=== PATIENT | female | born 1960 ===

== ENCOUNTER 2019-01-28 14:39 | Inpatient (IN) | payer SELFPAY ==
--- NOTE | 2019-01-28 16:06 | ADMNOTE ---
Subjective Date of Service: 01/28/19 Interval History: ADMISSION HISTORY AND PHYSICAL EXAM: ALLERGIES: NONE HOME MEDS: Metoprolol 25 mg bid Lisinopril 20 mg daily Ondansetron 4 mg QID PRN nausea HPI: The patient was hospitalized for 2 days about a week ago at [facility] for possible pneumonia. She was found to have possible metastatic lesions in her spleen, liver, kidneys, adrenal glands, and lungs. She has had anorexia for a few weeks and lost about 5 pounds. She quit smoking 6 weeks ago. She has a non-productive cough and BARBOSA. Family History: Findings - F of alcoholic cirrhosis. M A&W. 1 sister A&W. Social History: Findings - Lives with her who is her SDM. Quit smoking 11/2018. No alcohol abuse. 3 children Past Medical History: Findings - JENNIFER 2004. HTN Review of Systems - Measurements Intake and Output: Intake and Output Last 24 Hours 01/26/19 01/27/19 01/28/19 01/29/19 06:59 06:59 06:59 06:59 Weight 144 lb - Review of Systems Constitutional Symptoms: Positive: Weight Loss - 5 pounds Dermatology: Positive: Normal HEENT: Positive: Normal Eyes: Positive: Normal Thyroid: Positive: Normal Pulmonary: Positive: Cough, Exercise Intolerance Cardiology: Positive: Normal Gastroenterology: Positive: Nausea, Anorexia Genital - Urinary: Positive: Normal Genitourinay - Female: Positive: Menopause Musculoskeletal: Positive: Joint Pain - "I hurt all over" Endocrinology: Positive: Normal Hematologic/Lymphatic: Negative: Anemia, Easy Bruising, Hx Leukemia, Hx Lymphoma, Use of Anticoagulant, Use of Antiplatelet Drugs, Other Neurology: Positive: Normal Psychiatry: Positive: Normal Allergic/Immunologic: Negative: Hx Anaphylaxis, Hx Angioedema, Hx Environmental, Hx Seasonal, Asthma, Hx HIV, Immunocompromise, Swollen Glands LymphNodes, Other Objective Active Medications: Acetaminophen (Tylenol Tab*) 650 mg PO Q4H PRN PRN Reason: PAIN Azithromycin (Zithromax Tab*) 250 mg PO DAILY TRACEY Lisinopril (Prinivil Tab*) 2.5 mg PO DAILY TRACEY Vital Signs - 8 hr 01/28/19 14:41 Temperature 96.7 F Pulse Rate 98 Respiratory 28 Rate Blood Pressure 113/63 (mmHg) O2 Sat by Pulse 97 Oximetry Oxygen Devices in Use Now: Nasal Cannula Appearance: Alert, sitting up in bed. In fair spirits. Looks comfortable, occ dry cough during my visit. Eyes: No Scleral Icterus Ears/Nose/Mouth/Throat: Clear Oropharnyx, Mucous Membranes Moist Neck: NL Appearance and Movements; NL JVP, No Thyroid Enlargement, Masses Respiratory: Symmetrical Chest Expansion and Respiratory Effort, Clear to Percussion, - - mild rhonchi BL Cardiovascular: NL Sounds; No Murmurs; No JVD, RRR, No Edema, - Abdominal: NL Sounds; No Tenderness; No Distention, No Hepatosplenomegaly Lymphatic: - - L submandibular area 5 x 4 cm firms mass, tender. R lower neck 6 x 5 cm firm mass Extremities: No Edema, No Clubbing, Cyanosis, - Skin: No Rash or Ulcers, No Nodules or Sclerosis, - Neurological: Alert and Oriented x 3, NL Sensation Assess/Plan/Problems-Billing Assessment: - Patient Problems (1) Metastatic cancer Current Visit: Yes Status: Acute Code(s): C79.9 - SECONDARY MALIGNANT NEOPLASM OF UNSPECIFIED SITE SNOMED Code(s): 636689068 Comment: No tissue dx as yet. S/p neck mass bx 01/29/19. Dr. Lara consulted. CT neck/chest /abd /pelvis ordered. (2) SOB (shortness of breath) Current Visit: Yes Status: Acute Code(s): R06.02 - SHORTNESS OF BREATH SNOMED Code(s): 472585970 Comment: Azithromycin ordered. Possible superimposed respiratory infection. Scheduled benzonatate and guaifenesin with dextromethorphan for cough. Hypoxemia is likely related to metastatic disease and undiagnosed COPD exacerbation. will tx with Tova Medrol
[2019-01-28] MEDS ORDERED: GuaiFENesin DM* 5 ML UDC PO PRN (16:15)
[2019-01-28] MEDS: Azithromycin TAB* 250 MG PO SCH (16:57)
[2019-01-28] MEDS ORDERED: GuaiFENesin DM* 5 ML UDC PO SCH (17:00)
[2019-01-28] MEDS: Benzonatate CAP* 100 MG PO SCH (21:37)
[2019-01-28] MEDS: Acetaminophen TAB* 325 MG PO PRN (21:43)
[2019-01-29] MEDS: Azithromycin TAB* 250 MG PO SCH (08:16)
[2019-01-29] MEDS: Benzonatate CAP* 100 MG PO SCH ×3 (08:16→20:19)
[2019-01-29] MEDS ORDERED: Lisinopril TAB* 5 MG PO SCH (09:00)
[2019-01-29] MEDS: ALPRAZolam TAB* 0.5 MG PO PRN (12:01)
[2019-01-29] MEDS ORDERED: NS 0.9% 1000 ML** 1,000 ML IV SCH (12:45)
[2019-01-29] MEDS ORDERED: Iohexol 300* (CONTRAST) 10 ML SDV IV ONE (13:06)
--- NOTE | 2019-01-29 13:50 | PN ---
Subjective Date of Service: 01/29/19 Interval History: Pt c/o SOB x 3 days. She appears not to be willing to give too much information , very nonspecific historian. She stopped smoking 6 weeks ago (h/o 40 pack yr smoking), noted a mass at the base of R neck 2 weeks ago ,together with cough and SOB. Went to a doctor who placed her on Z- Pack. When she did not improve she went to [place] and was admitted on 01/21/19. [address] CT showed: lungs with reticonodular pattern and dense consolidation LLL. Masses of liver and spleen. B/l adrenal masses: L 7 cm, R-5.6 cm. Duodenal diverticula, abdominal aorta plaque at 1.4 cm in thickeness. Retroperitoneal adenopathy. She was discharged on 01/23/19 on Keflex and lisinopril without established f/u with oncology and no insurance coverage. Went to see Dr. Orellana on 01/28/19 who sent her back to ED in [place] from where she was transferred to [facility] for oncology consult. Has sergio on 02 x 2 days, c/o SOB. occasional nonproductive cough. Denies fever, denies wt loss. Family History: Findings - F of alcoholic cirrhosis. M A&W. 1 sister A&W. Social History: Findings - Lives with her who is her SDM. Quit smoking 11/2018. No alcohol abuse. 3 children Past Medical History: Findings - JENNIFER 2004. HTN Objective Active Medications: Acetaminophen (Tylenol Tab*) 650 mg PO Q4H PRN PRN Reason: PAIN Last Admin: 01/28/19 21:43 Dose: 650 mg Alprazolam (Xanax Tab*) 0.5 mg PO BID PRN PRN Reason: ANXIETY Last Admin: 01/29/19 12:01 Dose: 0.5 mg Azithromycin (Zithromax Tab*) 250 mg PO DAILY TRACEY Last Admin: 01/29/19 08:16 Dose: 250 mg Benzonatate (Tessalon Cap*) 200 mg PO TID TRACEY Last Admin: 01/29/19 08:16 Dose: 200 mg Guaifenesin/Dextromethorphan (Robitussin Dm*) 5 ml PO Q4H PRN PRN Reason: COUGH Sodium Chloride (Ns 0.9% 1000 Ml) 1,000 mls @ 75 mls/hr IV PER RATE TRACEY Stop: 01/30/19 02:04 Vital Signs - 8 hr 01/29/19 01/29/19 01/29/19 07:15 07:34 10:51 Temperature 97.4 F Pulse Rate 90 94 Respiratory 18 20 26 Rate Blood Pressure 103/59 95/61 (mmHg) O2 Sat by Pulse 92 94 Oximetry 01/29/19 01/29/19 12:01 12:23 Temperature Pulse Rate 94 Respiratory 22 28 Rate Blood Pressure 94/62 (mmHg) O2 Sat by Pulse 94 Oximetry Oxygen Devices in Use Now: Nasal Cannula Appearance: 58 yo f in nAD, AAOx3 Eyes: No Scleral Icterus, PERRLA Ears/Nose/Mouth/Throat: NL Teeth, Lips, Gums, Mucous Membranes Moist Neck: NL Appearance and Movements; NL JVP, Trachea Midline, - - R base of the neck/supraclavicular mass at 4-5 cm in diam Respiratory: Symmetrical Chest Expansion and Respiratory Effort, - - distant breath sounds b/l Cardiovascular: NL Sounds; No Murmurs; No JVD, RRR Abdominal: NL Sounds; No Tenderness; No Distention, No Hepatosplenomegaly Lymphatic: No Cervical Adenopathy Extremities: No Edema Skin: No Rash or Ulcers, No Nodules or Sclerosis Neurological: Alert and Oriented x 3, NL Muscle Strength and Tone Assess/Plan/Problems-Billing Assessment: 58 yo F with h/o smoking and HTN who routinely does not f/u with a PCP. She stopped smoking 6 weeks ago (h/o 40 pack yr smoking), noted a mass at the base of R neck 2 weeks ago ,together with cough and SOB. Went to a doctor who placed her on Z- Pack. When she did not improve she went to [place] and was admitted on 01/21/19. There CT showed: lungs with reticonodular pattern and dense consolidation LLL. Masses of liver and spleen. B/l adrenal masses: L 7 cm, R-5.6 cm. Duodenal diverticula, abdominal aorta plaque at 1.4 cm in thickeness. Retroperitoneal adenopathy. She was discharged on 01/23/19 on Keflex and lisinopril without established f/u with oncology and no insurance coverage. Went to see Dr. Orellana on 01/28/19 who sent her back to ED in [place] from where she was transferred to [facility] for oncology consult. - Patient Problems (1) Metastatic cancer Comment: No tissue dx as yet. S/p neck mass bx 01/29/19. Dr. Lara consulted. CT neck/chest /abd /pelvis ordered. (2) SOB (shortness of breath) Comment: Scheduled benzonatate and guaifenesin with dextromethorphan for cough. Hypoxemia is likely related to metastatic disease and undiagnosed COPD exacerbation. will tx with Tova Medrol (3) HTN (hypertension) Comment: today with mild hypotension, given NPO status for CT and precedures. will cont gentle IVF, stop lisinopril (4) DVT prophylaxis Comment: HSQ Status and Disposition: Inpatient
[2019-01-29] MEDS ORDERED: Heparin VIAL(*) 5000 UNITS/ML VIAL (FIVE THOUSAND) SUBCUT SCH (14:00)
[2019-01-29] MEDS: Albuterol/Ipratropium NEB.SOL* Albuterol 2.5 MG/Ipratropium 0.5 MG 3 ML INH PRN ×2 (14:23→20:28)
[2019-01-29] MEDS: methylPREDNISolone SOD 40 MG* 1 ML VIAL IV SCH (14:35)
[2019-01-29] MEDS: Acetaminophen TAB* 325 MG PO PRN (14:35)
[2019-01-29 15:41] LABS: Hematocrit 38 % (35-47); Mean Corpuscular HGB Conc 34 g/dL (31-36); Mean Corpuscular Hemoglobin 29 pg (27-31); Mean Corpuscular Volume 87 fL (80-97); Red Blood Count 4.41 10^6 /uL (3.70-4.87); Red Cell Distribution Width 14 % (10-15)
[2019-01-29] MEDS: Enoxaparin(*) 60 MG/0.6 ML SYR SUBCUT SCH (15:47)
[2019-01-29 15:57] LABS: Albumin 2.9 g/dL (3.2-5.2); Albumin/Globulin Ratio 1.2 (1-3); BUN/Creatinine Ratio 28.4 (8-20); C Reactive Protein 284.28 mg/L (<8.01); Calcium 8.2 mg/dL (8.6-10.3); EGFR African American 97.2 (>60); EGFR Non-African American 80.3 (>60); Globulin 2.4 g/dL (2-4); Potassium 4.1 mmol/L (3.5-5.0); Total Bilirubin 0.8 mg/dL (0.2-1.0); Total Protein 5.3 g/dL (6.4-8.9)
--- NOTE | 2019-01-29 16:11 | ECHO ---
*[facility]* [place] [address] Fax #: [phone] Transthoracic Echocardiogram Patient: Dilma Tejada : 1960 Study Date: 01/29/2019 Age: 58 Gender: F HR: 95 bpm Height: 66 in /167.6 cm BSA: 1.73 m^2 Weight: 142.7 lb /64.9 kg BMI: 23.1 kg/m^2 *Biomedical Engineering Aide: * Carmen Gutierrez [facility] *Referring Physician: * Florida Dykes *Reading Physician: * Jono Cm MD Indications: Pericardial Effusion. Pulmonary embolism. History: Metastatic disease to liver, spleen, kidneys, adrenal glands, lungs. Risk factors: Current tobacco use. Conclusions Summary: - Left ventricle: Systolic function is hyperdynamic. The estimated ejection fraction is 65-70%. Although no diagnostic regional wall motion abnormality is identified, this possibility cannot be completely excluded on the basis of this study. - Mitral valve: There is trace regurgitation. - Aortic valve: There is no evidence of stenosis. There is no significant regurgitation. - Pericardium, extracardiac: A small pericardial effusion is identified circumferential to the heart. There is no evidence of hemodynamic compromise. - Study data: No prior study is available for comparison. Study data: Transthoracic echocardiogram. Procedure: Transthoracic echocardiography was performed. Image quality was adequate. The study was technically limited due to Smoking history. Complete 2D, spectral Doppler, and color flow Doppler. Location: Bedside. Patient status: Inpatient. Patient room number: 445. No prior study is available for comparison. Rhythm: Normal sinus rhythm. Findings Left ventricle: The cavity size is normal. Wall thickness is mildly increased. Systolic function is hyperdynamic. The estimated ejection fraction is 65-70%. Although no diagnostic regional wall motion abnormality is identified, this possibility cannot be completely excluded on the basis of this study. There is no consistent Doppler evidence of clinically significant diastolic dysfunction. Right ventricle: The cavity size is normal. Wall thickness is mildly increased. Systolic function is normal. Left atrium: The atrium is normal in size. Right atrium: The atrium is normal in size. Mitral valve: The Mitral valve annulus appears calcified. The leaflets are mildly thickened. There is no evidence of stenosis. There is trace regurgitation. Aortic valve: The leaflets are normal thickness. There is no evidence of stenosis. There is no significant regurgitation. Tricuspid valve: The leaflets are normal thickness. There is no evidence of stenosis. There is mild regurgitation. Pulmonic valve: The leaflets are normal thickness. There is no evidence of stenosis. There is no significant regurgitation. Aorta: The aortic root appears normal. The aortic arch appears normal. Pericardium: A small pericardial effusion is identified circumferential to the heart. There is no evidence of hemodynamic compromise. PLAX 0.5cm (RV), PSAX 0.6cm (apical right ventricle), A4C 0.6cm (apex). Respiratory variation in mitral valve is 15%, in left ventricular outflow tract 4%. Pulmonary arteries: Not well visualized. Systemic veins: Inferior vena cava: The vessel is normal in size. There is (>= 50%) respiratory change in the IVC dimension. Measurements Left ventricle Value Ref Aortic valve Value Ref HARRISON, LAX 4.1 cm 3.8 - 5.2 Trini diam, ED 2.2 cm ----- ESD, LAX 2.4 cm 2.2 - 3.5 Peak v, S 1.62 m/sec ----- FS, LAX 42 % 27 - 45 VTI, S 25.0 cm ----- PW, ED, LAX 0.9 cm 0.6 - 0.9 Mean grad, S 7.0 mm Hg ----- EF 74 % 54 - 74 Peak grad, S 10.0 mm Hg ----- E', lat trini, TDI 10.6 cm/sec >=10.0 E/e', lat trini, 6 Mitral valve Value Ref TDI Peak E 0.68 m/sec ----- E', med trini, TDI 7.9 cm/sec >=7.0 Peak A 0.89 m/sec --- -- E/e', med trini, 9 Decel time 114 ms ----- TDI Peak E/A ratio 0.8 ----- E', avg, TDI 9.3 cm/sec E/e', avg, TDI 7 <=14 Tricuspid valve Value Ref TR peak v (H) 3.2 m/sec <=2.8 LVOT Value Ref Peak RV-RA grad, S 41 mm Hg ----- Peak pro, S 1.02 m/sec Mean grad, S 2 mm Hg Aortic root Value Ref Root diam 3.0 cm <3.9 Ventricular septum Value Ref IVS, ED (H) 1.1 cm 0.6 - 0.9 Ascending aorta Value Ref AAo AP diam, S 3.1 cm ----- Right ventricle Value Ref HARRISON, LAX 2.8 cm Aortic arch Value Ref HARRISON minor ax, A4C 2.4 cm 1.9 - 3.5 Arch diam 2.7 cm ----- mid Pressure, S 44 mm Hg Decending aorta Value Ref Laurie peak pro 0.97 m/sec ----- Left atrium Value Ref AP dim, ES 2.70 cm 2.70 - Pulmonary artery Value Ref 3.80 Pressure, S 44.0 mm Hg ----- ML dim, A4C 3.6 cm SI dim, A4C 4.0 cm Inferior vena cava Value Ref Diam 1.7 cm ----- Right atrium Value Ref SI dim, ES 3.6 cm 3.4 - 5.3 ML dim, ES, A4C 3.8 cm 2.6 - 4.4 Estimated RAP 3 mm Hg Legend: (L) and (H) curtis values outside specified reference range. Prepared and electronically signed by Jono Cm MD 01/29/2019 16:11
[2019-01-29 16:15] LABS: ABS Basophils 0.1 10^3/ul (0-0.2); ABS Eosinophils 0.1 10^3/ul (0-0.6); ABS Monocytes 0.5 10^3/ul (0-0.8); ABS Neutrophils 9.3 10^3/ul (1.5-7.7); ABS Nucleated RBC 0.6 10^3/ul; Eosinophil % 0.5 %; Lymphocyte % 28.9 %; Mean Platelet Volume 9.6 fL (7.4-10.4); Nucleated Red Blood Cells % 4.2; Platelet Count 78 10^3/uL (150-450)
[2019-01-29 16:19] LABS: Polychromasia 2+
[2019-01-29 16:45] LABS: Hepatitis C Antibody Negative (Negative)
[2019-01-29 17:05] LABS: HIV 4th Generation Nonreactive (Nonreactive)
[2019-01-30] MEDS: methylPREDNISolone SOD 40 MG* 1 ML VIAL IV SCH ×2 (02:00→13:11)
[2019-01-30] MEDS: Enoxaparin(*) 60 MG/0.6 ML SYR SUBCUT SCH ×2 (02:00→14:12)
--- NOTE | 2019-01-30 02:17 | CONS ---
CC: Dr. Orellana, [place]; Dr. Duffy, [place]; Dr. Emeka Lara * MEDICAL ONCOLOGY CONSULTATION NOTE: DATE OF CONSULT: 01/29/19 REASON FOR CONSULT: High suspicion for metastatic malignancy. HISTORY OF PRESENT ILLNESS: Dilma Tejada is a 58-year-old female who initially reported she was feeling fine until about 3 weeks ago, but later reported that about 5 weeks ago she noted some shortness of breath and had stopped smoking cigarettes at that time. She reports previously having smoked about a half-a-pack of cigarettes per day for many years. Approximately 3 weeks ago, in addition to shortness of breath, she had also a cough but no fever. Denies any pain, but just had achiness all over. Her appetite has been reasonable, but she also reports losing about 5 pounds. Denies any early satiety. She reports ongoing nausea but no vomiting. She also reports over the last 2 days very loose stools. Her breathing worsened slowly over the first 4 to 5 weeks this period of time and then got much worse suddenly approximately 1 week ago. She was hospitalized at [facility] with a question of pneumonia from 07/06 to 01/23/19. At that time, imaging studies were performed and revealed high suspicion for metastatic malignancy. CT of the abdomen and pelvis on 01/21 revealed bilateral adrenal masses up to 7 cm on the left and 5.6 cm on the right along with multiple low-density scattered masses to about both the liver and the spleen ranging up to 2.2 cm. In addition, retroperitoneal adenopathy up to 1.2 cm and lesions in the kidneys bilaterally. CT of the chest done the following day on 01/22/19 revealed left infrahilar consolidation with much patchy consolidation in the right upper lobe along with diffuse reticulonodular pattern of both lungs and a massive adenopathy in the mediastinal and left hilar regions including the middle mediastinum, AP , and subcarinal lymph node beds. Some of the above findings in the liver and adrenals were also noted on the CT scan. During that hospitalization, she was treated with a course of azithromycin to treat the suspected pneumonia. It should be noted during that hospitalization that laboratory studies [place] [address] with 14% nucleated red blood cells and a diminished platelet count of 80,000. She had mildly elevated alkaline phosphatase and transaminases. She was discharged from the hospital at that time with a report that she was unable to access oncology services due to her lack of insurance, although it is unclear to me who was contacted at that time. She re-presented to the [facility] with much worse shortness of breath on 01/28/[address] transferred [address] [facility]. She has been found since admission on CT scans to have worsening findings from that of [address] of the chest, abdomen, and pelvis was performed on 01/29/19 and revealed supraclavicular lymph nodes up to 2.8 cm on the right along with a confluent mediastinal lymph node up to 5.5 x 3.4 cm which did not seem to change from previously. There are also enlarged bilateral hilar lymph nodes up to 3 cm. In the abdomen, the adrenal glands now measure 9.1 x 5.2 on the right and 8.0 x 4.0 on the left and seemed larger than on previous imaging. The kidneys are heterogenous with a suggestion of small hypodensity suspicious for metastatic disease which appear more prominent than previously. The retroperitoneal adenopathy is unchanged from 1 week before, but the liver masses are slightly larger and the stomach lesions are unchanged. The patient also has small bilateral pulmonary nodules, small bilateral pleural effusions, and confluent infiltrate in the left lower lobe with a ground-glass appearance in the right lung which has progressed from the previous study. She was also found to have pulmonary emboli. PAST MEDICAL HISTORY: JENNIFER-BSO done for abdominal/pelvic cramping in 2004 at [facility]. No malignancy. History of hypertension. No diabetes, OR, or CVA. No other hospitalizations. Prior injury to the right foot with ongoing mild edema. MEDICATIONS: 1. Zithromax 150 mg daily. 2. Lisinopril 2.5 mg daily at the time of admission. FAMILY HISTORY: Father of cirrhosis. Mother is alive and well. One sister alive and well. Her daughter is in the room at the time of the hospital interview and is also in good health. SOCIAL HISTORY: She lives with her . She quit smoking in November when she got more short of breath. She denies any significant alcohol use or abuse. 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 REVIEW OF SYSTEMS: Nausea and decreased appetite as discussed above. Has ongoing pain in multiple locations including hips, spine, and other diffuse locations. Denies any significant easy bruising or bleeding. Denies any significant change in bowel or bladder habits other than some diarrhea for the last couple of days. Review of systems otherwise negative except as discussed in the accompanied health history form. PHYSICAL EXAM: A 58-year-old female with oxygen per nasal cannula, who appears fatigued, often times lying, her head on top of her daughter's shoulder but in no acute distress. Vital signs are stable. The patient is afebrile. Mild tachycardia. O2 saturation is 97% wearing oxygen. HEENT: PERRL, EOMI. No erythema or exudates. No scleral icterus. Lungs: Decreased breath sounds especially on the right. Occasional rhonchi, no rales or wheezes. Heart: Regular rate and rhythm without murmurs, rubs, or gallops. Abdomen: Soft and nontender without masses or organomegaly. Extremities: Mild edema, 1+ on the right, none on the left. Lymph nodes: Large mass in the right supraclavicular region as well as in the left submandibular region, each about 5 to 6 cm. 1+ pitting edema of the right lower leg. Skin: She has 2 small dark nodular lesions on the posterior neck and 2 other similar lesions, one very tiny and one similar to that on the neck, on the upper abdominal wall. No other obvious abnormalities are noted on the skin. Neurologic Exam: Cranial nerves III through XII are intact. Sensation is intact throughout. The patient is alert and oriented x3. Motor is 5/5 in the upper extremities. There is no pronator drift. Distally her legs are 5/5, though proximal legs are approximately 4/5 bilaterally. DIAGNOSTIC STUDIES/LAB DATA: Laboratory studies during this admission continue to show significant hematologic abnormalities with 16 nucleated red blood cells per 100 white cells. White count is elevated at 14,000, H and H of 38/13, and a diminished platelet count of 78,000. Immature cells are seen including an 8% to 9% bands and 1% metamyelocyte. Chemistry studies include mild elevation of alk phos at 158 and an elevated AST at 131 with a normal ALT at 26 and bilirubin at 0.8. Renal function is normal. CRP is dramatically elevated at 284. Since admission, she has been placed on oxygen and also has been started on anticoagulation and does report that her breathing is slightly better than it was prior to this admission. The patient reports that over the past 1 to 2 weeks she has noticed increasing generalized weakness, initially tells me that neither leg is worse than the other but then on more careful questioning and on physical exam reports the right leg is weaker than the left. She has not fallen, had not been using any mobility devices prior to the hospitalization, but had had to hang onto her or her daughter to be ambulatory recently. In the hospital, she is using a walker. She reports some mild headaches which she reports are worse when she coughs. Denies any visual changes. Denies any tingling or numbness in the extremities. In addition, she has recently noted lesions on the back of the neck and on the upper abdomen which are dark in color, very nodular, and she believes to be quite new. IMPRESSION: 1. A 58-year-old female, long-time smoker, who has developed rapid progression of symptoms per her report and that of her daughter over the past 5 to 6 weeks. She reports until about 3 weeks ago no symptoms other than some increasing shortness of breath and no symptoms at all until 5 to 6 weeks ago. She has obvious very large areas of metastatic malignancy in the lungs, mediastinum, supraclavicular region, retroperitoneum, liver, spleen, and adrenal gland. There is some suspicion for either a solid tumor or for melanoma. It would be unlikely with this pattern of distribution for this to be a lymphoma. Ultrasound-guided biopsy was obtained today with results pending. In addition to the above, the patient does have some modest weakness in bilateral lower extremities, and this has been progressive over the last couple of weeks. To this point she has not had any imaging of the brain and this will be necessary. She reports severe claustrophobia and does not think that she could have an MRI scan. Accordingly, CT of the brain with IV contrast will be ordered. Once we have back the results of the biopsies, further recommendations will be made for the patient. 2. Cytopenias. The patient has a significant number of nucleated red blood cells, has a low platelet count, and also a mild number of early white cells. This makes it extremely likely that the patient has bone marrow involvement from whatever malignancy it is. 3. Hypertension, well controlled. [id number]/[facility] #: [id number] [facility]
[2019-01-30] MEDS: Benzonatate CAP* 100 MG PO SCH ×3 (08:13→20:33)
[2019-01-30] MEDS: Azithromycin TAB* 250 MG PO SCH (08:13)
[2019-01-30] MEDS: Albuterol/Ipratropium NEB.SOL* Albuterol 2.5 MG/Ipratropium 0.5 MG 3 ML INH PRN ×3 (08:30→20:45)
[2019-01-30] MEDS: ALPRAZolam TAB* 0.5 MG PO PRN ×2 (09:38→20:33)
[2019-01-30] MEDS ORDERED: Iohexol 300* (CONTRAST) 10 ML SDV IV ONE (09:38)
--- NOTE | 2019-01-30 11:08 | PN ---
Subjective Date of Service: 01/30/19 Interval History: pt feels poorly and stated that she can't imagine feeling any worse. C/o unchanged from yesterday SOB and no appetite Family History: Findings - F of alcoholic cirrhosis. M A&W. 1 sister A&W. Social History: Findings - Lives with her who is her SDM. Quit smoking 11/2018. No alcohol abuse. 3 children Past Medical History: Findings - JENNIFER 2004. HTN Objective Active Medications: Acetaminophen (Tylenol Tab*) 650 mg PO Q4H PRN PRN Reason: PAIN Last Admin: 01/29/19 14:35 Dose: 650 mg Albuterol/Ipratropium (Duoneb (Albuterol 2.5 Mg/Ipratropium 0.5 Mg)) 1 neb INH Q4H PRN PRN Reason: SOB/WHEEZING Last Admin: 01/30/19 08:30 Dose: 1 neb Alprazolam (Xanax Tab*) 0.5 mg PO BID PRN PRN Reason: ANXIETY Last Admin: 01/30/19 09:38 Dose: 0.5 mg Azithromycin (Zithromax Tab*) 250 mg PO DAILY [facility] Last Admin: 01/30/19 08:13 Dose: 250 mg Benzonatate (Tessalon Cap*) 200 mg PO TID [facility] Last Admin: 01/30/19 08:13 Dose: 200 mg Enoxaparin Sodium (Lovenox(*)) 60 mg SUBCUT Q12H [facility] Last Admin: 01/30/19 02:00 Dose: 60 mg Guaifenesin/Dextromethorphan (Robitussin Dm*) 5 ml PO Q4H PRN PRN Reason: COUGH Methylprednisolone Sodium Succinate (Solu-Medrol 40 Mg) 40 mg IV Q12H [facility] Last Admin: 01/30/19 02:00 Dose: 40 mg Vital Signs - 8 hr 01/30/19 01/30/19 01/30/19 03:11 07:15 08:00 Temperature 97.3 F 97.4 F Pulse Rate 90 88 Respiratory 18 20 20 Rate Blood Pressure 100/53 98/54 (mmHg) O2 Sat by Pulse 93 100 Oximetry 01/30/19 01/30/19 08:32 09:38 Temperature Pulse Rate 87 Respiratory 26 22 Rate Blood Pressure (mmHg) O2 Sat by Pulse 92 Oximetry Oxygen Devices in Use Now: Nasal Cannula Appearance: 58 yo F in nAD, aAOx3 Eyes: No Scleral Icterus, PERRLA Ears/Nose/Mouth/Throat: NL Teeth, Lips, Gums, Mucous Membranes Moist Neck: NL Appearance and Movements; NL JVP, Trachea Midline, - - palpable R base of neck mass-unchanged Respiratory: Symmetrical Chest Expansion and Respiratory Effort, - - coarse rhonchi b/l mid lung gilbert Cardiovascular: NL Sounds; No Murmurs; No JVD, RRR Abdominal: NL Sounds; No Tenderness; No Distention Lymphatic: No Cervical Adenopathy Extremities: No Edema Skin: No Rash or Ulcers, No Nodules or Sclerosis Neurological: Alert and Oriented x 3, NL Muscle Strength and Tone Result Diagrams: 01/29/19 15:18 01/29/19 15:18 Assess/Plan/Problems-Billing Assessment: - Patient Problems (1) Metastatic cancer Comment: No tissue dx as yet. S/p neck mass bx 01/29/19. Dr. Lara consult appreciated. CT neck/chest /abd /pelvis shows extennsive metastatic disease and reticular infiltrate in the most of R lung. CT brain is pending (2) HTN (hypertension) Comment: SBP in low 100's stop lisinopril (3) COPD exacerbation Comment: Azithromycin cont for possible superimposed respiratory infection. Scheduled benzonatate and guaifenesin with dextromethorphan for cough. will cont tx with Solu Medrol (4) Acute pulmonary embolism Comment: cont Lovenox (5) Thrombocytopenia Comment: probably due to bone marrow involvement, awaiting further oncology recommendations CBC daily (6) Alkaline phosphatase elevation Comment: suspect due to metastatic liver disease (7) DVT prophylaxis Comment: Lovenox Status and Disposition: Inpatient
[2019-01-30] MEDS: Acetaminophen TAB* 325 MG PO PRN ×2 (14:12→20:39)
[2019-01-30 16:44] LABS: Hepatitis B Surface Antigen Nonreactive (Nonreactive)
[2019-01-31] MEDS: methylPREDNISolone SOD 40 MG* 1 ML VIAL IV SCH (02:31)
[2019-01-31] MEDS: Enoxaparin(*) 60 MG/0.6 ML SYR SUBCUT SCH ×2 (02:31→15:07)
[2019-01-31] MEDS: Albuterol/Ipratropium NEB.SOL* Albuterol 2.5 MG/Ipratropium 0.5 MG 3 ML INH PRN (02:48)
[2019-01-31] MEDS ORDERED: NS 0.9% 500 ML* 500 ML IV ONE (04:37)
[2019-01-31] MEDS ORDERED: Morphine INJ* 2 MG/ML 1 ML SYRINGE (TWO MG - NEW SYRINGE VERSION) IV ONE (04:40)
[2019-01-31 05:03] LABS: Hematocrit 34 % (35-47); Hemoglobin 11.3 g/dL (12.0-16.0); Mean Corpuscular HGB Conc 34 g/dL (31-36); Mean Corpuscular Hemoglobin 29 pg (27-31); Mean Corpuscular Volume 88 fL (80-97); Mean Platelet Volume 9.5 fL (7.4-10.4); Platelet Count 86 10^3/uL (150-450); Red Blood Count 3.85 10^6 /uL (3.70-4.87); Red Cell Distribution Width 15 % (10-15); White Blood Count 17.7 10^3/uL (3.5-10.8)
[2019-01-31] MEDS ORDERED: Morphine INJ* 4 MG/ML 1 ML SYRINGE (NEW SYRINGE VERSION) ONE (05:05)
[2019-01-31] MEDS: Morphine INJ* 4 MG/ML 1 ML SYRINGE (NEW SYRINGE VERSION) IV ONE ×2 (05:06→11:27)
[2019-01-31 05:13] LABS: Albumin 2.9 g/dL (3.2-5.2); Albumin/Globulin Ratio 1.2 (1-3); BUN/Creatinine Ratio 40.6 (8-20); Calcium 8.2 mg/dL (8.6-10.3); EGFR African American 67.9 (>60); EGFR Non-African American 56.1 (>60); Globulin 2.5 g/dL (2-4); Phosphorus 5.7 mg/dL (2.5-5.0); Total Bilirubin 0.7 mg/dL (0.2-1.0); Total Protein 5.4 g/dL (6.4-8.9)
[2019-01-31 05:14] LABS: INR 1.07 (0.82-1.09)
--- NOTE | 2019-01-31 05:14 | PN ---
Hospitalist Progress Note 58 yo Female admitted with B/L PEs, metastatic cancer of unknown origin and acute respiratory failuree. Earlier today, she had an unwitnessed fall. Her exam was benign other than for some tenderness on her scalp likely from the fall. Because she is being anti- coagulated, i got a CT head which was fine. Later in the night her oxygen requirement kept increasing, so patient was transferred to the ICU. CXR showed a right sided opacity, which was previously commented on from the CT she got yesterday. ABG showed a mixed metabolic and respiratory acidosis. Placed on Bipap.
[2019-01-31 05:33] LABS: Urine Appearance Cloudy; Urine Bacteria Absent (Absent); Urine Bilirubin 2+ (Negative); Urine Blood 1+ (Negative); Urine Color Amber; Urine Glucose Negative (Negative); Urine Granular Casts Present (Absent); Urine Ketones Trace (Negative); Urine Nitrite Negative (Negative); Urine Protein 1+(30 mg/dL) (Negative); Urine Red Blood Cell 2+(6-10/hpf) (Absent); Urine Red Blood Cell Casts Present (Absent); Urine Specific Gravity 1.029 (1.010-1.030); Urine Urobilinogen Negative (Negative); Urine White Blood Cell Trace(0-5/hpf) (Absent)
[2019-01-31 05:36] LABS: Magnesium 2.8 mg/dL (1.9-2.7); Potassium 5.4 mmol/L (3.5-5.0)
[2019-01-31] MEDS ORDERED: NS 0.9% 1000 ML** 2,000 ML IV ONE (06:00)
[2019-01-31 06:42] LABS: ABS Basophils 0.1 10^3/ul (0-0.2); ABS Eosinophils 0.1 10^3/ul (0-0.6); ABS Monocytes 0.4 10^3/ul (0-0.8); ABS Nucleated RBC 0.6 10^3/ul; Eosinophil % 0.6 %; Lymphocyte % 22.7 %; Nucleated Red Blood Cells % 3.2; Polychromasia 2+
[2019-01-31] MEDS ORDERED: cefTRIAXone(*) 1 GM in NS 0.9% 50 ML* 50 ML IVPB SCH (07:30)
[2019-01-31] MEDS: Morphine ORAL CONCENTRATE* 5 MG/0.25 ML ORAL.SYRIN SL PRN ×2 (07:57→11:21)
--- NOTE | 2019-01-31 08:00 | PN ---
Progress Note - Progress Note Date of Service: 01/31/19 SOAP: Subjective: moved into ICU over night for worsening respiratory status. currently refusing to make a decision on code status, but also refusing to allow us to call family to come in to help make decision. She very clearly refuses to allow us to call her family "they will panic, you have to wait until them come tomorrow". Objective: Vital Signs Temp Pulse Resp BP Pulse Ox 98.2 F 99 30 113/66 96 01/31/19 07:00 01/31/19 07:00 01/31/19 07:00 01/31/19 07:00 01/31/19 07:00 sitting up with air hunger did not perform full exam due to patient distress distant bs A+O x 3 Laboratory Results - last 24 hr 01/29/19 01/31/19 01/31/19 15:18 04:14 04:29 WBC 17.7 H RBC 3.85 Hgb 11.3 L Hct 34 L MCV 88 MCH 29 MCHC 34 RDW 15 Plt Count 86 L MPV 9.5 Neut % (Auto) 73.6 Lymph % (Auto) 22.7 Steele % (Auto) 2.5 Eos % (Auto) 0.6 Baso % (Auto) 0.6 Absolute Neuts (auto) 13.0 H Absolute Lymphs (auto) 4.0 Absolute Monos (auto) 0.4 Absolute Eos (auto) 0.1 Absolute Basos (auto) 0.1 Absolute Nucleated RBC 0.6 Immature Gran % 11.0 H Neutrophils % 68.0 Band Neutrophils % 7.0 Lymphocytes % 16.0 Reactive Lymphs % 1.0 Monocytes % 4.0 Metamyelocytes % 1.0 Myelocytes % 2.0 H Promyelocytes % 1.0 Nucleated RBC % 3.2 Nucleated RBCs/100 WBC 7.0 H Normal RBC Morphology Not Reportable Polychromasia 2+ INR (Anticoag Therapy) Patient Temperature Not Reportable ABG pH 7.17 L* ABG pH (Temp Correct) Not Reportable ABG pCO2 51 H ABG pCO2 (Temp Corrct Not Reportable ABG pO2 110 H ABG pO2 (Temp Correct Not Reportable ABG HCO3 17.0 L ABG O2 Saturation 98.7 H ABG Base Excess -10.1 L Respiration Rate Not Reportable O2 Delivery Device Hi flow Ventilator Type Not Reportable Vent Mode Not Reportable FiO2 100 Inspiratory Time Not Reportable PEEP Not Reportable Pressure Support Not Reportable Pressure Control Not Reportable EPAP Not Reportable IPAP Not Reportable BiPAP Not Reportable Sodium Potassium Chloride Carbon Dioxide Anion Gap BUN Creatinine Est GFR ( Amer) Est GFR (Non-Af Amer) BUN/Creatinine Ratio Glucose Lactic Acid Calcium Phosphorus Magnesium Total Bilirubin AST ALT Alkaline Phosphatase Total Protein Albumin Globulin Albumin/Globulin Ratio Urine Color Urine Appearance Urine pH Ur Specific Gary Urine Protein Urine Ketones Urine Blood Urine Nitrate Urine Bilirubin Urine Urobilinogen Ur Leukocyte Esterase Urine WBC (Auto) Urine RBC (Auto) Urine Bacteria Hyaline Casts Granular Casts RBC Casts Urine Glucose Hep Bs Antigen Nonreactive 01/31/19 01/31/19 01/31/19 04:29 04:29 04:58 WBC RBC Hgb Hct MCV MCH MCHC RDW Plt Count MPV Neut % (Auto) Lymph % (Auto) Steele % (Auto) Eos % (Auto) Baso % (Auto) Absolute Neuts (auto) Absolute Lymphs (auto) Absolute Monos (auto) Absolute Eos (auto) Absolute Basos (auto) Absolute Nucleated RBC Immature Gran % Neutrophils % Band Neutrophils % Lymphocytes % Reactive Lymphs % Monocytes % Metamyelocytes % Myelocytes % Promyelocytes % Nucleated RBC % Nucleated RBCs/100 WBC Normal RBC Morphology Polychromasia INR (Anticoag Therapy) 1.07 Patient Temperature ABG pH ABG pH (Temp Correct) ABG pCO2 ABG pCO2 (Temp Corrct ABG pO2 ABG pO2 (Temp Correct ABG HCO3 ABG O2 Saturation ABG Base Excess Respiration Rate O2 Delivery Device Ventilator Type Vent Mode FiO2 Inspiratory Time PEEP Pressure Support Pressure Control EPAP IPAP BiPAP Sodium 137 Potassium 5.4 H Chloride 105 Carbon Dioxide 21 L Anion Gap 11 BUN 41 H Creatinine 1.01 H Est GFR ( Amer) 67.9 Est GFR (Non-Af Amer) 56.1 BUN/Creatinine Ratio 40.6 H Glucose 122 H Lactic Acid 1.8 Calcium 8.2 L Phosphorus 5.7 H Magnesium 2.8 H Total Bilirubin 0.70 AST 140 H ALT 23 Alkaline Phosphatase 169 H Total Protein 5.4 L Albumin 2.9 L Globulin 2.5 Albumin/Globulin Ratio 1.2 Urine Color Urine Appearance Urine pH Ur Specific Gary Urine Protein Urine Ketones Urine Blood Urine Nitrate Urine Bilirubin Urine Urobilinogen Ur Leukocyte Esterase Urine WBC (Auto) Urine RBC (Auto) Urine Bacteria Hyaline Casts Granular Casts RBC Casts Urine Glucose Hep Bs Antigen Acetaminophen (Tylenol Tab*) 650 mg PO Q4H PRN PRN Reason: PAIN Last Admin: 01/30/19 20:39 Dose: 650 mg Albuterol/Ipratropium (Duoneb (Albuterol 2.5 Mg/Ipratropium 0.5 Mg)) 1 neb INH Q4H PRN PRN Reason: SOB/WHEEZING Last Admin: 01/31/19 02:48 Dose: 1 neb Azithromycin (Zithromax Tab*) 250 mg PO DAILY [facility] Last Admin: 01/30/19 08:13 Dose: 250 mg Benzonatate (Tessalon Cap*) 200 mg PO TID [facility] Last Admin: 01/30/19 20:33 Dose: 200 mg Enoxaparin Sodium (Lovenox(*)) 60 mg SUBCUT Q12H [facility] Last Admin: 01/31/19 02:31 Dose: 60 mg Guaifenesin/Dextromethorphan (Robitussin Dm*) 5 ml PO Q4H PRN PRN Reason: COUGH Sodium Chloride (Ns 0.9% 500 Ml*) 500 mls @ 100 mls/hr IV ONCE ONE Stop: 01/31/19 09:36 Last Admin: 01/31/19 04:50 Dose: 100 mls/hr Ceftriaxone Sodium 1 gm/ (Sodium Chloride) 50 mls @ 100 mls/hr IVPB Q24H [facility] Methylprednisolone Sodium Succinate (Solu-Medrol 40 Mg) 40 mg IV Q12H [facility] Last Admin: 01/31/19 02:31 Dose: 40 mg Morphine Sulfate (Morphine Oral Concentrate*) 5 mg SL Q2H PRN PRN Reason: comfort Assessment: 58 yo F w newly diagnosed diffuse melanoma, with [employer], cutaneous, liver, lung, adrenal, kidney and likely bone marrow involvement, now currently requiring high flow oxygen. I discussed this with Dilma at length (with Dr. Dykes present). There are no treatments that are going to turn this around quickly and her respiratory status has deteriorated significantly. I have recommended consideration of hospice. While she initially agreed to this, she did later state "I am going to beat this". She was clearly overwhelmed with her diagnosis. I have strongly recommended consideration of DNR/DNI status, but she is deferring this decision to family that she will not allow us to call in. She understands that the default then is that she is full code. We will continue to follow with you and will await marker status, however I do not think she will survive long enough to be offered therapy. Plan: -add roxanol for air hunger -cont lovenox for PE -palliative care consult we will continue to follow with you.
--- NOTE | 2019-01-31 08:01 | PN ---
Subjective Date of Service: 01/31/19 Interval History: Pt had hypoxemia overnight and need to be placed on Vapotherm in ICU, currently on max Vapotherm setting 02 sats 98%, pt c/o "pain all over" Khan was placed last night Family History: Findings - F of alcoholic cirrhosis. M A&W. 1 sister A&W. Social History: Findings - Lives with her who is her SDM. Quit smoking 11/2018. No alcohol abuse. 3 children Past Medical History: Findings - JENNIFER 2004. HTN Objective Active Medications: Acetaminophen (Tylenol Tab*) 650 mg PO Q4H PRN PRN Reason: PAIN Last Admin: 01/30/19 20:39 Dose: 650 mg Albuterol/Ipratropium (Duoneb (Albuterol 2.5 Mg/Ipratropium 0.5 Mg)) 1 neb INH Q4H PRN PRN Reason: SOB/WHEEZING Last Admin: 01/31/19 02:48 Dose: 1 neb Azithromycin (Zithromax Tab*) 250 mg PO DAILY [facility] Last Admin: 01/30/19 08:13 Dose: 250 mg Benzonatate (Tessalon Cap*) 200 mg PO TID [facility] Last Admin: 01/30/19 20:33 Dose: 200 mg Enoxaparin Sodium (Lovenox(*)) 60 mg SUBCUT Q12H [facility] Last Admin: 01/31/19 02:31 Dose: 60 mg Guaifenesin/Dextromethorphan (Robitussin Dm*) 5 ml PO Q4H PRN PRN Reason: COUGH Sodium Chloride (Ns 0.9% 500 Ml*) 500 mls @ 100 mls/hr IV ONCE ONE Stop: 01/31/19 09:36 Last Admin: 01/31/19 04:50 Dose: 100 mls/hr Ceftriaxone Sodium 1 gm/ (Sodium Chloride) 50 mls @ 100 mls/hr IVPB Q24H [facility] Methylprednisolone Sodium Succinate (Solu-Medrol 40 Mg) 40 mg IV Q12H [facility] Last Admin: 01/31/19 02:31 Dose: 40 mg Morphine Sulfate (Morphine Oral Concentrate*) 5 mg SL Q2H PRN PRN Reason: comfort Vital Signs - 8 hr 01/31/19 01/31/19 01/31/19 00:37 01:32 02:38 Temperature 97.2 F 97.3 F 97.4 F Pulse Rate 94 91 95 Respiratory 20 20 16 Rate Blood Pressure 119/58 100/48 110/65 (mmHg) O2 Sat by Pulse 96 97 89 Oximetry 01/31/19 01/31/19 01/31/19 03:10 03:42 03:45 Temperature 98.4 F Pulse Rate 90 96 95 Respiratory 23 30 22 Rate Blood Pressure 92/77 98/64 (mmHg) O2 Sat by Pulse 88 98 100 Oximetry 01/31/19 01/31/19 01/31/19 04:00 04:15 04:31 Temperature Pulse Rate 95 96 99 Respiratory 27 26 32 Rate Blood Pressure 105/67 104/61 100/60 (mmHg) O2 Sat by Pulse 100 100 99 Oximetry 01/31/19 01/31/19 01/31/19 04:46 05:00 05:01 Temperature 96.4 F 97.9 F 97.9 F Pulse Rate 97 96 97 Respiratory 26 19 17 Rate Blood Pressure 100/64 88/73 (mmHg) O2 Sat by Pulse 98 95 Oximetry 01/31/19 01/31/19 01/31/19 05:02 05:06 05:15 Temperature 98.2 F Pulse Rate 90 98 Respiratory 18 32 29 Rate Blood Pressure 101/58 (mmHg) O2 Sat by Pulse 100 98 Oximetry 01/31/19 01/31/19 01/31/19 05:30 05:45 05:49 Temperature 98.2 F 98.2 F Pulse Rate 99 98 98 Respiratory 27 27 24 Rate Blood Pressure 98/53 100/64 (mmHg) O2 Sat by Pulse 100 100 100 Oximetry 01/31/19 01/31/19 01/31/19 06:00 06:15 06:30 Temperature 98.2 F 98.2 F 98.1 F Pulse Rate 97 96 98 Respiratory 23 28 26 Rate Blood Pressure 100/59 97/65 111/67 (mmHg) O2 Sat by Pulse 98 100 97 Oximetry 01/31/19 01/31/19 06:45 07:00 Temperature 98.1 F 98.2 F Pulse Rate 95 99 Respiratory 28 30 Rate Blood Pressure 111/70 113/66 (mmHg) O2 Sat by Pulse 97 96 Oximetry Oxygen Devices in Use Now: BiPAP Appearance: 58 yo F in nAD, AAOx3 Eyes: No Scleral Icterus, PERRLA Ears/Nose/Mouth/Throat: NL Teeth, Lips, Gums, Mucous Membranes Moist Neck: NL Appearance and Movements; NL JVP, Trachea Midline Respiratory: Symmetrical Chest Expansion and Respiratory Effort, - - distant breath sounds on L lung asculation with scant wheezes at left abse Cardiovascular: NL Sounds; No Murmurs; No JVD, RRR Abdominal: NL Sounds; No Tenderness; No Distention Lymphatic: No Cervical Adenopathy Extremities: No Clubbing, Cyanosis, - - trace pedal edema b/l Skin: No Nodules or Sclerosis Neurological: Alert and Oriented x 3, NL Muscle Strength and Tone Result Diagrams: 01/31/19 04:29 01/31/19 04:29 Microbiology and Other Data: Microbiology 01/31/19 03:35 Nasal Screen MRSA (PCR) - Final Nasal Mrsa Not Detected Assess/Plan/Problems-Billing Assessment: - Patient Problems (1) Acute hypoxemic respiratory failure Comment: pt's CXR looks markedly wose today. Her entire lung on R if filled with infiltrate-likely lymphagitic involvement of melanoma. Cont Vapotherm. she may need to be intubated later on today. So far agrees to full code (2) Metastatic cancer Comment: S/p neck mass bx 01/29/19 path positive for metastatic melanoma. Due to pt's respiratory status, oncology recommends hospice. Pt does not want to make the decision. For now wants to be full code and defers the decision to her daughter. Pt refused for us to call her daughter when offered. Pt stated that her daughter is planning to come in tomorrow and we should wait for her to make the decision once she comes in and not earlier. Pt agreed to palliative care consult. Agreed to trying Roxanol for air hunger and comfort Dr. Lara/Dr. Chauhan consult appreciated. CT neck/chest /abd /pelvis shows extennsive metastatic disease and reticular infiltrate in the most of R lung. CT brain shows brain metastasis. (3) COPD exacerbation Comment: Azithromycin cont for possible superimposed respiratory infection. Scheduled benzonatate and guaifenesin with dextromethorphan for cough. will cont tx with Solu Medrol (4) Acute pulmonary embolism Comment: cont Lovenox (5) Thrombocytopenia Comment: probably due to bone marrow involvement CBC daily (6) Alkaline phosphatase elevation Comment: suspect due to metastatic liver disease (7) DVT prophylaxis Comment: Lovenox Status and Disposition: Inpatient
[2019-01-31] MEDS: Azithromycin TAB* 250 MG PO SCH (09:18)
[2019-01-31] MEDS: Benzonatate CAP* 100 MG PO SCH ×3 (09:18→21:56)
--- NOTE | 2019-01-31 13:12 | CONSULT ---
Palliative / Hospice Consult Ordering Provider: [place] Dykes - none Referal Reason: goals of care/no bowel meds/MS - Subjective Code Status: DNR Advance Directives Location: No Advance Directives MOLST Part A Completed: Yes - completed with family and on chart MOLST Part E Completed:: Yes - completed with family and on chart - History or Present Illness History or Present Illness: 58yo female presented to ER as a transfer from [facility] for oncology care. Pt had been hospitalized 01/21-01/23 for SOB where they discovered lung nodules and recommended following up with Oncology at discharge. PMH HTN. 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 Studies neck CT-RUL consolidation with bilat effusions and medialstinal lymphadenoathy, enlarged necrotic cervical node consistent with met, chest/abd/pel CT-multiple pulm emboli, infiltrate LLL , R lung nodule & infiltrate, pericardial effusion, bilat effusions unchanged, multiple bilat puml nodules, bilat adrenal masses, liver & spleen lesion, renal lesion, supraclavicular, medialstinal, hilar adenopathy, neck biopsy malignant melanoma, ECHO- EF 65-70% small pericardial effusion, brain CT L parietal lobe lesion no shift, brain CT #2 no change, EKG NSR, CXR- bilat infiltrate with progression in R lung, small bilat effusions and lymphadenopathy, WBC 17.7, H/H 11.3/34, plt 86, BUN/Cr 41/1.01, egfr 56.1, INR 1.07 and CRP 284. Pt admitted in ICU on vapotherm with metastatic melanoma to lung, brain, liver, spleen, adrenals and kidney, multiple pulm emboli, pneumonia and thrombocytopenia. All history is from family and medical record although pt is awake she drifts off and requested her daughter complete the MOLST. Lab Values: Abnormal Lab Results 01/29/19 01/31/19 01/31/19 15:18 04:14 04:29 WBC 17.7 H RBC 3.85 Hgb 11.3 L Hct 34 L MCV 88 MCH 29 MCHC 34 RDW 15 Plt Count 86 L MPV 9.5 Neut % (Auto) 73.6 Lymph % (Auto) 22.7 Haakon % (Auto) 2.5 Eos % (Auto) 0.6 Baso % (Auto) 0.6 Absolute Neuts (auto) 13.0 H Absolute Lymphs (auto) 4.0 Absolute Monos (auto) 0.4 Absolute Eos (auto) 0.1 Absolute Basos (auto) 0.1 Absolute Nucleated RBC 0.6 Immature Gran % 11.0 H Neutrophils % 68.0 Band Neutrophils % 7.0 Lymphocytes % 16.0 Reactive Lymphs % 1.0 Monocytes % 4.0 Metamyelocytes % 1.0 Myelocytes % 2.0 H Promyelocytes % 1.0 Nucleated RBC % 3.2 Nucleated RBCs/100 WBC 7.0 H Normal RBC Morphology Not Reportable Polychromasia 2+ INR (Anticoag Therapy) Patient Temperature Not Reportable ABG pH 7.17 L* ABG pH (Temp Correct) Not Reportable ABG pCO2 51 H ABG pCO2 (Temp Corrct Not Reportable ABG pO2 110 H ABG pO2 (Temp Correct Not Reportable ABG HCO3 17.0 L ABG O2 Saturation 98.7 H ABG Base Excess -10.1 L Respiration Rate Not Reportable O2 Delivery Device Hi flow Ventilator Type Not Reportable Vent Mode Not Reportable FiO2 100 Inspiratory Time Not Reportable PEEP Not Reportable Pressure Support Not Reportable Pressure Control Not Reportable EPAP Not Reportable IPAP Not Reportable BiPAP Not Reportable Sodium Potassium Chloride Carbon Dioxide Anion Gap BUN Creatinine Est GFR ( Amer) Est GFR (Non-Af Amer) BUN/Creatinine Ratio Glucose Lactic Acid Calcium Phosphorus Magnesium Total Bilirubin AST ALT Alkaline Phosphatase Total Protein Albumin Globulin Albumin/Globulin Ratio Urine Color Urine Appearance Urine pH Ur Specific [place] Urine Protein Urine Ketones Urine Blood Urine Nitrate Urine Bilirubin Urine Urobilinogen Ur Leukocyte Esterase Urine WBC (Auto) Urine RBC (Auto) Urine Bacteria Hyaline Casts Granular Casts RBC Casts Urine Glucose Hep Bs Antigen Nonreactive 01/31/19 01/31/19 01/31/19 04:29 04:29 04:58 WBC RBC Hgb Hct MCV MCH MCHC RDW Plt Count MPV Neut % (Auto) Lymph % (Auto) Haakon % (Auto) Eos % (Auto) Baso % (Auto) Absolute Neuts (auto) Absolute Lymphs (auto) Absolute Monos (auto) Absolute Eos (auto) Absolute Basos (auto) Absolute Nucleated RBC Immature Gran % Neutrophils % Band Neutrophils % Lymphocytes % Reactive Lymphs % Monocytes % Metamyelocytes % Myelocytes % Promyelocytes % Nucleated RBC % Nucleated RBCs/100 WBC Normal RBC Morphology Polychromasia INR (Anticoag Therapy) 1.07 Patient Temperature ABG pH ABG pH (Temp Correct) ABG pCO2 ABG pCO2 (Temp Corrct ABG pO2 ABG pO2 (Temp Correct ABG HCO3 ABG O2 Saturation ABG Base Excess Respiration Rate O2 Delivery Device Ventilator Type Vent Mode FiO2 Inspiratory Time PEEP Pressure Support Pressure Control EPAP IPAP BiPAP Sodium 137 Potassium 5.4 H Chloride 105 Carbon Dioxide 21 L Anion Gap 11 BUN 41 H Creatinine 1.01 H Est GFR ( Amer) 67.9 Est GFR (Non-Af Amer) 56.1 BUN/Creatinine Ratio 40.6 H Glucose 122 H Lactic Acid 1.8 Calcium 8.2 L Phosphorus 5.7 H Magnesium 2.8 H Total Bilirubin 0.70 AST 140 H ALT 23 Alkaline Phosphatase 169 H Total Protein 5.4 L Albumin 2.9 L Globulin 2.5 Albumin/Globulin Ratio 1.2 Urine Color Urine Appearance Urine pH Ur Specific [place] Urine Protein Urine Ketones Urine Blood Urine Nitrate Urine Bilirubin Urine Urobilinogen Ur Leukocyte Esterase Urine WBC (Auto) Urine RBC (Auto) Urine Bacteria Hyaline Casts Granular Casts RBC Casts Urine Glucose Hep Bs Antigen 01/31/19 01/31/19 04:58 06:35 WBC RBC Hgb Hct MCV MCH MCHC RDW Plt Count MPV Neut % (Auto) Lymph % (Auto) Haakon % (Auto) Eos % (Auto) Baso % (Auto) Absolute Neuts (auto) Absolute Lymphs (auto) Absolute Monos (auto) Absolute Eos (auto) Absolute Basos (auto) Absolute Nucleated RBC Immature Gran % Neutrophils % Band Neutrophils % Lymphocytes % Reactive Lymphs % Monocytes % Metamyelocytes % Myelocytes % Promyelocytes % Nucleated RBC % Nucleated RBCs/100 WBC Normal RBC Morphology Polychromasia INR (Anticoag Therapy) Patient Temperature ABG pH 7.23 L ABG pH (Temp Correct) ABG pCO2 42 ABG pCO2 (Temp Corrct ABG pO2 55 L* ABG pO2 (Temp Correct ABG HCO3 17.2 L ABG O2 Saturation 89.8 L ABG Base Excess -9.6 L Respiration Rate O2 Delivery Device Ventilator Type Vent Mode FiO2 Inspiratory Time PEEP Pressure Support Pressure Control EPAP IPAP BiPAP Sodium Potassium Chloride Carbon Dioxide Anion Gap BUN Creatinine Est GFR ( Amer) Est GFR (Non-Af Amer) BUN/Creatinine Ratio Glucose Lactic Acid Calcium Phosphorus Magnesium Total Bilirubin AST ALT Alkaline Phosphatase Total Protein Albumin Globulin Albumin/Globulin Ratio Urine Color Cinthia Urine Appearance Cloudy Urine pH 5.0 Ur Specific [place] 1.029 Urine Protein 1+(30 mg/dl) A Urine Ketones Trace A Urine Blood 1+ A Urine Nitrate Negative Urine Bilirubin 2+ A Urine Urobilinogen Negative Ur Leukocyte Esterase Negative Urine WBC (Auto) Trace(0-5/hpf) Urine RBC (Auto) 2+(6-10/hpf) A Urine Bacteria Absent Hyaline Casts Present A Granular Casts Present A RBC Casts Present A Urine Glucose Negative Hep Bs Antigen Laboratory Last Values WBC 17.7 10^3/uL (3.5-10.8) H 01/31/19 04:29 RBC 3.85 10^6 /uL (3.70-4.87) 01/31/19 04:29 Hgb 11.3 g/dL (12.0-16.0) L 01/31/19 04:29 Hct 34 % (35-47) L 01/31/19 04:29 MCV 88 fL (80-97) 01/31/19 04:29 MCH 29 pg (27-31) 01/31/19 04:29 MCHC 34 g/dL (31-36) 01/31/19 04:29 RDW 15 % (10-15) 01/31/19 04:29 Plt Count 86 10^3/uL (150-450) L 01/31/19 04:29 MPV 9.5 fL (7.4-10.4) 01/31/19 04:29 Neut % (Auto) 73.6 % 01/31/19 04:29 Lymph % (Auto) 22.7 % 01/31/19 04:29 Haakon % (Auto) 2.5 % 01/31/19 04:29 Eos % (Auto) 0.6 % 01/31/19 04:29 Baso % (Auto) 0.6 % 01/31/19 04:29 Absolute Neuts (auto) 13.0 10^3/ul (1.5-7.7) H 01/31/19 04:29 Absolute Lymphs (auto) 4.0 10^3/ul (1.0-4.8) 01/31/19 04:29 Absolute Monos (auto) 0.4 10^3/ul (0-0.8) 01/31/19 04:29 Absolute Eos (auto) 0.1 10^3/ul (0-0.6) 01/31/19 04:29 Absolute Basos (auto) 0.1 10^3/ul (0-0.2) 01/31/19 04:29 Absolute Nucleated RBC 0.6 10^3/ul 01/31/19 04:29 Immature Gran % 11.0 % (0-9) H 01/31/19 04:29 Neutrophils % 68.0 % 01/31/19 04:29 Band Neutrophils % 7.0 % (0-8) 01/31/19 04:29 Lymphocytes % 16.0 % 01/31/19 04:29 Reactive Lymphs % 1.0 % (0-6) 01/31/19 04:29 Monocytes % 4.0 % 01/31/19 04:29 Basophils % 1.0 % 01/29/19 15:18 Metamyelocytes % 1.0 % (0-2) 01/31/19 04:29 Myelocytes % 2.0 % (0-1) H 01/31/19 04:29 Promyelocytes % 1.0 % 01/31/19 04:29 Nucleated RBC % 3.2 01/31/19 04:29 Nucleated RBCs/100 WBC 7.0 (0-0) H 01/31/19 04:29 Normal RBC Morphology Not Reportable 01/31/19 04:29 Polychromasia 2+ 01/31/19 04:29 INR (Anticoag Therapy) 1.07 (0.82-1.09) 01/31/19 04:29 Patient Temperature Not Reportable 01/31/19 04:14 ABG pH 7.23 (7.35-7.45) L 01/31/19 06:35 ABG pH (Temp Correct) Not Reportable 01/31/19 04:14 ABG pCO2 42 mmHg (35-45) 01/31/19 06:35 ABG pCO2 (Temp Corrct Not Reportable 01/31/19 04:14 ABG pO2 55 mmHg (80-100) L* 01/31/19 06:35 ABG pO2 (Temp Correct Not Reportable 01/31/19 04:14 ABG HCO3 17.2 mmol/L (19-31) L 01/31/19 06:35 ABG O2 Saturation 89.8 % (94.0-98.0) L 01/31/19 06:35 ABG Base Excess -9.6 mmol/L (-2.0-2.0) L 01/31/19 06:35 Respiration Rate Not Reportable 01/31/19 04:14 O2 Delivery Device Hi flow 01/31/19 04:14 Ventilator Type Not Reportable 01/31/19 04:14 Vent Mode Not Reportable 01/31/19 04:14 FiO2 100 01/31/19 04:14 Inspiratory Time Not Reportable 01/31/19 04:14 PEEP Not Reportable 01/31/19 04:14 Pressure Support Not Reportable 01/31/19 04:14 Pressure Control Not Reportable 01/31/19 04:14 EPAP Not Reportable 01/31/19 04:14 IPAP Not Reportable 01/31/19 04:14 BiPAP Not Reportable 01/31/19 04:14 Sodium 137 mmol/L (135-145) 01/31/19 04:29 Potassium 5.4 mmol/L (3.5-5.0) H 01/31/19 04:29 Chloride 105 mmol/L (101-111) 01/31/19 04:29 Carbon Dioxide 21 mmol/L (22-32) L 01/31/19 04:29 Anion Gap 11 mmol/L (2-11) 01/31/19 04:29 BUN 41 mg/dL (6-24) H 01/31/19 04:29 Creatinine 1.01 mg/dL (0.51-0.95) H 01/31/19 04:29 Est GFR ( Amer) 67.9 (>60) 01/31/19 04:29 Est GFR (Non-Af Amer) 56.1 (>60) 01/31/19 04:29 BUN/Creatinine Ratio 40.6 (8-20) H 01/31/19 04:29 Glucose 122 mg/dL (70-100) H 01/31/19 04:29 Lactic Acid 1.8 mmol/L (0.5-2.0) 01/31/19 04:58 Calcium 8.2 mg/dL (8.6-10.3) L 01/31/19 04:29 Phosphorus 5.7 mg/dL (2.5-5.0) H 01/31/19 04:29 Magnesium 2.8 mg/dL (1.9-2.7) H 01/31/19 04:29 Total Bilirubin 0.70 mg/dL (0.2-1.0) 01/31/19 04:29 AST 140 U/L (13-39) H 01/31/19 04:29 ALT 23 U/L (7-52) 01/31/19 04:29 Alkaline Phosphatase 169 U/L (34-104) H 01/31/19 04:29 C-Reactive Protein 284.28 mg/L (<8.01) H 01/29/19 15:18 Total Protein 5.4 g/dL (6.4-8.9) L 01/31/19 04:29 Albumin 2.9 g/dL (3.2-5.2) L 01/31/19 04:29 Globulin 2.5 g/dL (2-4) 01/31/19 04:29 Albumin/Globulin Ratio 1.2 (1-3) 01/31/19 04:29 Urine Color Cinthia 01/31/19 04:58 Urine Appearance Cloudy 01/31/19 04:58 Urine pH 5.0 (5-9) 01/31/19 04:58 Ur Specific [place] 1.029 (1.010-1.030) 01/31/19 04:58 Urine Protein 1+(30 mg/dl) (Negative) A 01/31/19 04:58 Urine Ketones Trace (Negative) A 01/31/19 04:58 Urine Blood 1+ (Negative) A 01/31/19 04:58 Urine Nitrate Negative (Negative) 01/31/19 04:58 Urine Bilirubin 2+ (Negative) A 01/31/19 04:58 Urine Urobilinogen Negative (Negative) 01/31/19 04:58 Ur Leukocyte Esterase Negative (Negative) 01/31/19 04:58 Urine WBC (Auto) Trace(0-5/hpf) (Absent) 01/31/19 04:58 Urine RBC (Auto) 2+(6-10/hpf) (Absent) A 01/31/19 04:58 Urine Bacteria Absent (Absent) 01/31/19 04:58 Hyaline Casts Present (Absent) A 01/31/19 04:58 Granular Casts Present (Absent) A 01/31/19 04:58 RBC Casts Present (Absent) A 01/31/19 04:58 Urine Glucose Negative (Negative) 01/31/19 04:58 Hep Bs Antigen Nonreactive (Nonreactive) 01/29/19 15:18 Hepatitis C Antibody Negative (Negative) 01/29/19 15:18 Hepatitis C Ab Index 0.01 s/c 01/29/19 15:18 HIV 1&2 Ab/P24 Ag 4thGn Nonreactive (Nonreactive) 01/29/19 15:18 - Objective Active Medications: Acetaminophen (Tylenol Tab*) 650 mg PO Q4H PRN PRN Reason: PAIN Last Admin: 01/30/19 20:39 Dose: 650 mg Albuterol/Ipratropium (Duoneb (Albuterol 2.5 Mg/Ipratropium 0.5 Mg)) 1 neb INH Q4H PRN PRN Reason: SOB/WHEEZING Last Admin: 01/31/19 02:48 Dose: 1 neb Azithromycin (Zithromax Tab*) 250 mg PO DAILY [facility] Last Admin: 01/31/19 09:18 Dose: 250 mg Benzonatate (Tessalon Cap*) 200 mg PO TID [facility] Last Admin: 01/31/19 09:18 Dose: 200 mg Enoxaparin Sodium (Lovenox(*)) 60 mg SUBCUT Q12H [facility] Last Admin: 01/31/19 02:31 Dose: 60 mg Guaifenesin/Dextromethorphan (Robitussin Dm*) 5 ml PO Q4H PRN PRN Reason: COUGH Ceftriaxone Sodium 1 gm/ (Sodium Chloride) 50 mls @ 100 mls/hr IVPB Q24H [facility] Last Admin: 01/31/19 07:58 Dose: 100 mls/hr Methylprednisolone Sodium Succinate (Solu-Medrol 40 Mg) 40 mg IV Q12H [facility] Last Admin: 01/31/19 02:31 Dose: 40 mg Morphine Sulfate (Morphine Oral Concentrate*) 5 mg SL Q2H PRN PRN Reason: comfort Last Admin: 01/31/19 11:21 Dose: 5 mg Morphine Sulfate (Morphine Inj (Syringe))*) 2 mg IV Q2H PRN PRN Reason: PAIN - SEVERE Vital Signs: Vital Signs: Temp Pulse Resp BP Pulse Ox 97.3 F 94 22 105/68 100 01/31/19 12:15 01/31/19 12:15 01/31/19 12:15 01/31/19 12:15 01/31/19 12:15 Patient Weight: Weight 67.1 kg Intake and Output: Intake & Output 01/29/19 01/30/19 01/31/19 02/01/19 06:59 06:59 06:59 06:59 Intake Total 100 558 261 120 Output Total 300 0 350 175 Balance -200 558 -89 -55 Weight 65 kg 64.864 kg 67.1 kg Intake: IV Fluids 438 151 NS 438 151 IVPB 0 NS 0 Oral 100 120 110 120 Output: Urine 300 0 200 Khan 150 175 Other: Estimated Stool Amount Small Small # Voids 2 ADLs: Meal Record Start: 01/28/19 14: 49 Freq: DAILY@0900,1400,1800 Status: Complete Protocol: Created 01/28/19 14:49 System (Rec: 01/28/19 14:49 System TELE-C01) Document 01/28/19 18:00 [id number] (Rec: 01/28/19 20:46 [id number] TELE-C05) Document 01/29/19 09:00 [id number] (Rec: 01/29/19 15:09 [id number] TELE-C09) Document 01/29/19 14:00 [id number] (Rec: 01/29/19 15:10 [id number] TELE-C09) Document 01/29/19 18:00 [id number] (Rec: 01/29/19 21:02 [id number] TELE-C07) Document 01/30/19 09:00 [id number] (Rec: 01/30/19 10:21 [id number] TELE-C07) Document 01/30/19 14:00 [id number] (Rec: 01/30/19 14:47 [id number] TELE-C09) Document 01/30/19 18:00 [id number] (Rec: 01/30/19 18:54 [id number] TELE-C01) ADLs: Meal Record Start: 01/31/19 05: 11 Freq: 09,13,18 Status: Active Protocol: Created 01/31/19 05:11 [id number] (Rec: 01/31/19 05:11 [id number] ICU-M25) Document 01/31/19 09:00 [id number] (Rec: 01/31/19 09:31 [id number] ICU-C10) Intake and Output Start: 01/28/19 14: 49 Freq: DAILY@0600,1400,2200 Status: Complete Protocol: Created 01/28/19 14:49 System (Rec: 01/28/19 14:49 System TELE-C01) Document 01/28/19 20:46 [id number] (Rec: 01/28/19 20:47 [id number] TELE-C05) Document 01/29/19 05:04 [id number] (Rec: 01/29/19 05:04 [id number] TELE-C05) Document 01/29/19 14:00 [id number] (Rec: 01/29/19 15:10 [id number] TELE-C09) Document 01/29/19 21:02 [id number] (Rec: 01/29/19 21:05 [id number] TELE-C07) Document 01/30/19 05:35 [id number] (Rec: 01/30/19 05:35 [id number] TELE-C03) Document 01/30/19 14:00 [id number] (Rec: 01/30/19 14:48 [id number] TELE-C09) Intake and Output Start: 01/31/19 05: 11 Freq: Q1HR Status: Active Protocol: Created 01/31/19 05:11 [id number] (Rec: 01/31/19 05:11 [id number] ICU-M25) Document 01/31/19 06:00 [id number] (Rec: 01/31/19 06:16 [id number] ICU-C25) Document 01/31/19 07:00 [id number] (Rec: 01/31/19 07:16 [id number] ICU-M25) Co-Sign 01/31/19 07:00 [id number] Document 01/31/19 08:00 [id number] (Rec: 01/31/19 09:31 [id number] ICU-C10) Document 01/31/19 11:00 [id number] (Rec: 01/31/19 11:21 [id number] ICU-M25) Eyes: No Scleral Icterus, PERRLA Ears/Nose/Mouth/Throat: NL Teeth, Lips, Gums, Mucous Membranes Moist Neck: NL Appearance and Movements; NL JVP, Trachea Midline Cardiovascular: NL Sounds; No Murmurs; No JVD, RRR Abdominal: NL Sounds; No Tenderness; No Distention Extremities: No Clubbing, Cyanosis, - - trace pedal edema b/l Neurological: Alert and Oriented x 3, NL Muscle Strength and Tone - Assessment Assessment: 58yo female with diffusely metastatic melanoma poor prognosis, pt family aware - Plan Consult Plan (MU): Hospice Plan: Met with pt, her mother, her , her daughter and and son. Discussed pt prognosis which is very poor, pt and family opted for no intubation, no CPR, no feeding tube comfort care but maintaining IV access for pain meds. Pt wanted daughter to make decisions for her regarding MOLST form which was completed. stated that pt never wanted CPR or intubation, saying she preferred to quickly. Pt and family also aware pt can't be kept on vapotherm which she will not be able to stop without pt dying. Family aware and trying to get other family members to visit especially daughter in intermediate. Goal is to keep pt comfortable. Support offered family in shock that cancer is so widespread. 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 KPS 10%, PPS 10% - Time On Unit Date of Evaluation: 01/31/19 Hospice Consult Time in: 12:00 Hospice Consult Time Out: 13:00 Hospice Consult Time Total: 60 > 50% of Time Spend In Counseling or Coordinating Care: Yes
[2019-01-31] MEDS: Morphine INJ* 2 MG/ML 1 ML SYRINGE (TWO MG - NEW SYRINGE VERSION) IV PRN ×4 (15:25→23:19)
[2019-02-01] MEDS: Enoxaparin(*) 60 MG/0.6 ML SYR SUBCUT SCH (04:33)
[2019-02-01] MEDS: Morphine INJ* 2 MG/ML 1 ML SYRINGE (TWO MG - NEW SYRINGE VERSION) IV PRN ×3 (05:47→14:00)
[2019-02-01] MEDS: methylPREDNISolone SOD 40 MG* 1 ML VIAL IV SCH (07:10)
[2019-02-01] MEDS: Benzonatate CAP* 100 MG PO SCH (07:55)
[2019-02-01] MEDS ORDERED: Morphine PCA ADULT* 5 MG/ML 30 ML PCA SCH ×3 (09:00→14:14)
--- NOTE | 2019-02-01 09:25 | PN ---
Subjective Date of Service: 02/01/19 Interval History: Pt is occasionally moving in bed, lethargic, nonverbal. seen with sister and son by the bedside Family History: Findings - F of alcoholic cirrhosis. M A&W. 1 sister A&W. Social History: Findings - Lives with her who is her SDM. Quit smoking 11/2018. No alcohol abuse. 3 children Past Medical History: Findings - JENNIFER 2004. 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 [facility]; Protocol Morphine Sulfate (Morphine Oral Concentrate*) 5 mg SL Q2H PRN PRN Reason: comfort Last Admin: 01/31/19 11:21 Dose: 5 mg Morphine Sulfate (Morphine Inj (Syringe))*) 2 mg IV Q1H PRN PRN Reason: PAIN - SEVERE Vital Signs - 8 hr 02/01/19 02/01/19 02/01/19 02:00 03:00 04:00 Temperature 98.2 F 98.4 F 98.6 F Pulse Rate 103 98 100 Respiratory 22 29 21 Rate Blood Pressure 105/53 84/58 (mmHg) O2 Sat by Pulse 90 100 100 Oximetry 02/01/19 02/01/19 02/01/19 05:00 05:47 06:00 Temperature 98.4 F 98.2 F Pulse Rate 101 98 Respiratory 17 25 17 Rate Blood Pressure 81/52 (mmHg) O2 Sat by Pulse 95 95 Oximetry 02/01/19 02/01/19 07:00 08:00 Temperature 98.1 F 97.7 F Pulse Rate 96 96 Respiratory 17 16 Rate Blood Pressure 67/39 (mmHg) O2 Sat by Pulse 97 98 Oximetry Oxygen Devices in Use Now: High Flow Heated Nasal Cannula Appearance: 58 yo F, nonverbal in NAD Eyes: No Scleral Icterus, PERRLA Ears/Nose/Mouth/Throat: NL Teeth, Lips, Gums, Mucous Membranes Moist Neck: NL Appearance and Movements; NL JVP Respiratory: Symmetrical Chest Expansion and Respiratory Effort, - - decreased breath sounds at R lung, rhonchi at LLL Cardiovascular: NL Sounds; No Murmurs; No JVD Abdominal: NL Sounds; No Tenderness; No Distention Lymphatic: No Cervical Adenopathy Extremities: No Clubbing, Cyanosis Skin: No Nodules or Sclerosis, - - peripheral cyanosis present Result Diagrams: 01/31/19 04:29 01/31/19 04:29 Microbiology and Other Data: Microbiology 01/31/19 03:35 Nasal Screen MRSA (PCR) - Final Nasal Mrsa Not Detected Assess/Plan/Problems-Billing Assessment: - Patient Problems (1) Acute hypoxemic respiratory failure Comment: Vapotherm to beaned off as tolerated for comfort care. (2) Metastatic cancer Comment: S/p neck mass bx 01/29/19 path positive for metastatic melanoma. Due to pt's respiratory status, oncology recommended hospice. Pt was made comfort care on 01/31/19 will start Morphine gtt, since pt needed morphine IV Q2H and still appears restless. Dr. Lara/Dr. Chauhan consult appreciated. CT neck/chest /abd /pelvis shows extennsive metastatic disease and reticular infiltrate in the most of R lung. CT brain shows brain metastasis. (3) COPD exacerbation Comment: comfort care (4) Acute pulmonary embolism Comment: Lovenox stopped due to comfort care (5) Thrombocytopenia Comment: probably due to bone marrow involvement (6) Alkaline phosphatase elevation Comment: suspect due to metastatic liver disease (7) DVT prophylaxis Comment: none, comfort care Status and Disposition: Inpatient
[2019-02-01 17:43] VITALS: BP 67/38
--- NOTE | 2019-02-04 03:45 | DS ---
CC: Dr. Orellana; Dr. Chauhan; Dr. Lara, Oncology; Dr. Benavides * DISCHARGE/ SUMMARY: DATE OF ADMISSION: 01/28/19 DATE OF : 02/01/19 TIME OF : 4:32 p.m. PRIMARY CARE PROVIDER: Dr. Orellana. CAUSE OF : Acute hypoxemic respiratory failure due to widely metastatic melanoma. CONSULTATIONS DURING THE HOSPITAL STAY: Included Dr. Lara and Dr. Chauhan from Oncology, Dr. Mel Benavides from Palliative Care. RADIOLOGY DATA PERFORMED DURING THE HOSPITAL STAY: Included CT of the chest, abdomen, and pelvis obtained on 01/29/19 showed: 1. "Multiple pulmonary emboli. 2. Diffuse ground-glass reticular nodular infiltrate in the right lung has progressed from prior study a week ago related to pulmonary emboli, also consider pneumonia, pulmonary edema or lymphangitic spread of the tumor. More confluent infiltrate of the left lower lobe consistent with pneumonia and/or mass, unchanged. Multiple bilateral pulmonary nodules. Small bilateral pleural effusions unchanged. Small pericardial effusion increased. Marked supraclavicular, mediastinal, and bilateral hilar lymphadenopathy, unchanged. Multiple liver and splenic lesions consistent with metastatic disease, unchanged. Bilateral adrenal masses slightly progressed on the right side consistent with metastatic disease. Small renal lesions also more consistent with metastatic disease. Retroperitoneal lymphadenopathy unchanged." Neck CT, impression: "Enlarged, centrally necrotic cervical lymph nodes consistent with metastatic disease given the history of malignancy. Right upper lobe consolidation, bilateral pleural effusions, and mediastinal lymphadenopathy. Please refer to CT of the chest for further report." Brain CT obtained with contrast on 01/30/19, impression: "Vague hypodense lesion in the medial parietal lobe measuring up to 10 mm. Appearance is similar to previous examination. Subjectively, this does not appear to represent hemorrhage. Given the patient's history of malignancy, metastatic disease cannot be excluded. Followup with nonemergent contrast-enhanced MRI should be considered." Pathology obtained from the right supraclavicular lymph node showed "metastatic malignant melanoma." HOSPITALIZATION COURSE: Dilma Tejada is a 58-year-old female who was originally hospitalized at [facility] at the beginning of January 2019. She was noted to have markedly enlarged supraclavicular lymph node and metastatic disease on CT. She was treated for bronchitis with antibiotics and discharged home for followup with primary care provider and oncologist. The patient stated that she continued to have progressive shortness of breath and she presented to her primary care provider on 01/28/19. Dr. Orellana sent the patient back to [facility] for evaluation. [facility] also evaluated the patient and directed the patient for transfer to [facility] for oncology evaluation. The patient was transferred from [facility] to our hospital on 01/28/19. On 01/29/19, she was diagnosed with bilateral PEs. She also had further evaluation with a CT of the abdomen and pelvis. As above mentioned, her metastatic disease progressed. Also, on the same day, she had biopsy of the right-sided supraclavicular lymph node that turned out to be positive for metastatic melanoma. The patient was treated with Lovenox for her bilateral pulmonary emboli. She also was placed on steroids and antibiotics for possibility of superimposed pneumonia. Nevertheless, she continued to worsen in her respiratory status to the point that on 01/31/19 early in the morning, she had to be transferred to intensive care unit for high- flow oxygen. She was placed on high-flow oxygen and continued to require it. At that point, she was reevaluated by our oncology team, who noted that the patient's respiratory status is too poor to institute any treatment. At this point, hospice was offered to the patient. Dr. Mel Benavides saw the patient in consultation and the patient at that point decided to be comfort care and do not resuscitate. The patient continued to be on high-flow oxygen with Vapotherm. She was placed on morphine intermittently and then on morphine drip. The patient on 02/01/19. Her time of was 4:32 p.m. At that time, she was noted to be not responding to any stimuli. Her pupils were nonreactive to light. There were no spontaneous respirations and no heartbeat. The patient was pronounced at this time. The patient's family was notified and requested no autopsy to be performed. Please note that this is a very short summary of the patient's prolonged and complicated hospitalization. Please refer to further medical records for details. TIME SPENT: Approximately 55 minutes was spent on the patient's discharge. [id number]/[facility] #: [id number] [place]
== END 2019-02-01 16:32 | disposition expired | DRG 180 ==
LOC: MEDTELE 14:39 → ICU 01-31 04:23
PROVIDERS: ADMIT Internal Medicine; ATTEND Internal Medicine
PROC: 0JB43ZX Excision of Right Neck Subcutaneous Tissue and Fascia, Percutaneous Approach, Diagnostic (ICD-10-PCS; principal; 2019-01-29)
DX: C78.02 Secondary malignant neoplasm of left lung (principal); I26.99 Other pulmonary embolism without acute cor pulmonale; J18.9 Pneumonia, unspecified organism; J96.01 Acute respiratory failure with hypoxia; C78.7 Secondary malignant neoplasm of liver and intrahepatic bile duct; C79.00 Secondary malignant neoplasm of unspecified kidney and renal pelvis; C79.70 Secondary malignant neoplasm of unspecified adrenal gland; C78.89 Secondary malignant neoplasm of other digestive organs; C79.81 Secondary malignant neoplasm of breast; C79.52 Secondary malignant neoplasm of bone marrow; C79.40 Secondary malignant neoplasm of unspecified part of nervous system; J44.1 Chronic obstructive pulmonary disease with (acute) exacerbation; J90 Pleural effusion, not elsewhere classified; E87.2 Acidosis; C78.1 Secondary malignant neoplasm of mediastinum; C78.01 Secondary malignant neoplasm of right lung; Z66 Do not resuscitate; G93.9 Disorder of brain, unspecified; I10 Essential (primary) hypertension; I95.9 Hypotension, unspecified; D69.6 Thrombocytopenia, unspecified; C43.9 Malignant melanoma of skin, unspecified; W18.30XA Fall on same level, unspecified, initial encounter; Y92.239 Unspecified place in hospital as the place of occurrence of the external cause; Z87.891 Personal history of nicotine dependence; Z81.1 Family history of alcohol abuse and dependence; Z79.899 Other long term (current) drug therapy
CPT/HCPCS: 10005; 36415; 70450; 70470; 70491; 71045; 71260; 74177; 80053; 81003; 81015; 82803; 83605; 83735; 84100; 85025; 85610; 86140; 86803; 87040; 87086; 87340; 87389; 87641; 88172; 88173; 88305; 88341; 88342; 93005; 93306; 94640; 94660; 99233; A9270-GY; J0696; J1644; J1650; J2270; J2920; Q9967